=== PATIENT | male | born 2000 | race Hispanic/Latino ===

== ENCOUNTER 2020-05-04 08:46 | Day surgery (SDC) | payer BC ==
[~2020-05-04 08:46] MED LIST: Ketorolac Tromethamine 30 MG/ML VIAL ONE; Piperacillin/Tazobactam 3.375 GM VIAL ONE; Sodium Chloride 0.9% 100 ML ONE
--- NOTE | 2020-05-04 08:55 | HP ---
HISTORY OF PRESENT ILLNESS: The patient transferred from [facility] and does not have an MRN number yet, they are doing that now. Todd Melvin is a 19-year-old male patient from [place], whose parents now live in [place]. The patient lives in a dorm with a roommate. He is studying [employer], [employer]. He presented [facility] for 24-hour history of right lower quadrant pain, nausea, and anorexia. He was evaluated there, felt to have appendicitis. CAT scan confirmed that, he was transferred for laparoscopic video appendectomy. White count was slightly elevated. COVID test negative. Basic metabolic profile and CBC otherwise normal. ALLERGIES: NONE. SOCIAL HISTORY: Tobacco, none. Alcohol, none. MEDICATIONS: None. PAST SURGICAL HISTORY: Noncontributory. PAST MEDICAL HISTORY: Childhood illness. FAMILY HISTORY: Noncontributory. REVIEW OF SYSTEMS: Noncontributory. PHYSICAL EXAMINATION: VITAL SIGNS: 150/79, 92, and 18. HEAD, EARS, EYES, NOSE, AND THROAT: Unremarkable. LUNGS: Clear to auscultation. CARDIAC: Regular rate and rhythm without murmur or gallop. ABDOMEN: Soft. Tenderness in right lower quadrant without guarding or rebound. EXTREMITIES: Unremarkable. ASSESSMENT AND PLAN: Acute appendicitis. I recommend laparoscopic video appendectomy. Risks of infection, bleeding, and visceral injury explained, possible open procedure, and transfusions. All questions answered. His parents are coming from [place], will be here at 11 a.m. Postoperatively, the patient diet as tolerated. Activity as tolerated. Follow up in my office in 2 to 3 weeks or sooner p.r.n. Job ID: [id number]
[2020-05-04] MEDS ORDERED: Ondansetron PF 4 MG/2 ML Vial ONE ×2 (09:02→13:20)
[2020-05-04] MEDS ORDERED: Piperacillin/Tazobactam 3.375 GM VIAL ONE (09:04)
[2020-05-04] MEDS ORDERED: Sodium Chloride 0.9% 100 ML ONE (09:04)
[2020-05-04] MEDS ORDERED: Fentanyl 100 MCG/2 ML VIAL ONE (10:21)
[2020-05-04] MEDS ORDERED: Midazolam HCl 2 mg/2 ml Vial ONE (10:21)
[2020-05-04] MEDS ORDERED: Bupivacaine HCl 0.5%/Epinephrine 1:200,000/PF 30 ml Vial ONE (10:23)
--- NOTE | 2020-05-04 12:12 | OP ---
DATE OF PROCEDURE: 05/04/2020 PREOPERATIVE DIAGNOSIS: Acute appendicitis. POSTOPERATIVE DIAGNOSIS: Acute appendicitis. PROCEDURE PERFORMED: Laparoscopic video appendectomy. ANESTHESIA: General, local 0.5% Marcaine with epinephrine 30 mL. DESCRIPTION OF PROCEDURE: The patient was taken to the operating room, where under general anesthesia, abdomen was clipped of hair, prepared with ChloraPrep and draped in routine fashion. Gee catheter was placed at the beginning of procedure and removed at the end. Local anesthetic was infiltrated in the skin and subcutaneous tissue about each port site. Infraumbilical incision made, pneumoperitoneum to 15 mmHg was obtained with a Veress needle, replaced with a 5 port and laparoscope inserted. Right lateral subcostal incision made, a 5 port placed. Suprapubic incision made, a 12 port placed. Appendix was acutely inflamed. Mesoappendix was taken down with the LigaSure. The stump of the appendix was divided in the cecal stump with Endo-CHRIS blue load stapler. Stapled the cecal stump, hemostasis was gained with clips. Hemostasis was gained with clips mesentery. Good hemostasis noted. Appendix was placed in Endobag and removed. Good hemostasis ensured. Irrigant and pneumoperitoneum evacuated. After, suprapubic fascia was approximated with 0 Vicryl GraNee needle. All skin incisions were approximated with subdermal 4-0 Monocryl and [place] glue applied. Job ID: [id number]
[2020-05-04] MEDS ORDERED: EPHEDRINE 25 MG/5 ML SYRINGE ONE (13:20)
[2020-05-04] MEDS ORDERED: Dexamethasone 20 MG/5 ML VIAL ONE (13:20)
[2020-05-04] MEDS ORDERED: Glycopyrrolate 0.2 MG/ML 5 ML SYRINGE ONE (13:20)
[2020-05-04] MEDS ORDERED: Lidocaine 1% PF 5 ML VIAL ONE (13:20)
[2020-05-04] MEDS ORDERED: Ketorolac Tromethamine 30 MG/ML VIAL ONE (13:20)
[2020-05-04] MEDS ORDERED: PROPOFOL 200 MG/20 ML VIAL ONE (13:20)
[2020-05-04] MEDS ORDERED: Rocuronium Bromide 10 MG/ML (10ML VIAL) ONE (13:20)
== END 2020-05-04 14:02 | disposition home or self-care (01) ==
LOC: SDC 08:46
PROVIDERS: ATTEND Specialist
PROC: 0DTJ4ZZ Resection of Appendix, Percutaneous Endoscopic Approach (ICD-10-PCS; principal; 2020-05-04)
DX: K35.80 Unspecified acute appendicitis (principal)
CPT/HCPCS: 88304; J1100; J1885; J2250; J2405; J2543; J2704; J3010; J3490